=== PATIENT | female | born 2005 | race African-American/Black ===

== ENCOUNTER 2023-12-06 22:24 | Emergency (ER) | payer OTHER ==
[~2023-12-06] VITALS: Ht 162.6 cm; Wt 63.1 kg
[2023-12-07] MEDS: FLUORESCEIN OPHTH 1MG STRIP OD ONE (01:21)
[2023-12-07] MEDS: TETRACAINE 0.5% OPHTH SOLN 4ML OD ONE (01:21)
[2023-12-07] MEDS: ERYTHROMYCIN OPHTH OINT OD ONE (01:56)
[2023-12-07] MEDS: UNRESOLVED CLARIFICATION ENTRY XX STA (02:12)
[2023-12-07] MEDS ORDERED: ERYTOIN8 OD (02:40)
[2023-12-07 02:48] VITALS: BP 124/74; TEMP 98; O2SAT 100
== END 2023-12-07 02:48 | disposition home or self-care (01) ==
LOC: M ED 22:24
DX: S05.01XA Injury of conjunctiva and corneal abrasion without foreign body, right eye, initial encounter (principal); H43.391 Other vitreous opacities, right eye; H11.31 Conjunctival hemorrhage, right eye; Y04.0XXA Assault by unarmed brawl or fight, initial encounter; Z79.2 Long term (current) use of antibiotics; Y92.9 Unspecified place or not applicable; Y93.89 Activity, other specified; Y99.9 Unspecified external cause status

== ENCOUNTER 2025-08-29 18:33 | Emergency (ER) | payer OTHER ==
[~2025-08-29] VITALS: Ht 162.6 cm; Wt 64.7 kg
[~2025-08-29 18:33] MED LIST: ERYTOIN8 OD
[2025-08-29 19:57] LABS: KETONE, URINE AUTO RFX NEGATIVE (NEGATIVE); LEUKOCYTE ESTERASE UR AUTO RFX NEGATIVE (NEGATIVE); MUCUS, URINE RFX SMALL (NEGATIVE); NITRITE, URINE AUTO RFX NEGATIVE (NEGATIVE); RBC, URINE AUTO RFX 0 /HPF (0-3); SQUAM EPITHELIAL CELL UR AURFX 2 /HPF (0-6); WBC, URINE AUTO RFX 0 /HPF (0-3)
[2025-08-29 20:53] VITALS: BP 129/85; TEMP 98.2; O2SAT 100
== END 2025-08-29 21:25 | disposition left against medical advice (07) ==
LOC: M ED 18:33
DX: Z53.21 Procedure and treatment not carried out due to patient leaving prior to being seen by health care provider (principal)

== ENCOUNTER → 2025-08-30 | Outpatient (REF) | payer OTHER ==
[2025-09-01 12:34] LABS: Trichomonas vaginalis (AMP) NOT DETECTED (NEGATIVE)
[2025-09-01 12:57] LABS: GC DNA AMPLIFICATION NEGATIVE (NEGATIVE)
== END ==
LOC: M LAB REF 12:14
PROVIDERS: ATTEND Student in an Organized Health Care Education/Training Program
DX: R30.0 Dysuria (principal)